=== PATIENT | male | born 1965 | race Caucasian/White ===

== ENCOUNTER 2025-01-27 10:00 | Outpatient (RCR) | payer MEDICARE, MEDICAID, SELFPAY ==
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
[2024-11-04 10:46] VITALS: BP 154/82; PULSE 76; RESP 20; TEMP 36.8; O2SAT 100
[2024-11-06 10:11] VITALS: BP 140/88; PULSE 83; RESP 20; TEMP 36.9; O2SAT 97
--- NOTE | 2024-11-06 10:25 | PC.NURSE ---
No nursing group due to nurse meeting.
[2024-11-11 10:16] VITALS: BP 127/78; PULSE 83; RESP 20; TEMP 36.9; O2SAT 99
[2024-11-13 10:18] VITALS: BP 142/79; PULSE 82; RESP 20; TEMP 37; O2SAT 100
--- NOTE | 2024-11-14 11:57 | WPDSLSPROGRE ---
Progress HPI Progress HPI Visit Attended By patient and staff History Obtained From patient Chief Complaint 2 week admission follow-up HPI this is a 2 week follow-up from admission. Patient is being seen for depression, anxiety, and grief. He enjoys the program and participates well, starting to formulate goals. He is currently not on psychotropic medication, as back in July he was put on Lexapro but never took this because he says that he does not like to take a lot of pills. However, he does use marijuana for mood and pain. Reports early and middle insomnia due to pain and sinus problems. I suggested that he see an ENT but he said that he has seen 1 for the past couple of years and feels that he did not help him. Average Number of Hours of Sleep 5 Sleep Quality sleep throughout the night and difficulty falling asleep Change in PMFSH Releveant to Presenting Illness No Review of Systems Review of Systems Constitutional Reports fatigue and other ( Type 2 diabetes, morbid obesity) Eyes Reports WNL ENT Reports WNL Respiratory Reports WNL Cardiovascular Reports other ( hypertension, cardiac stent) Gastrointestinal Reports WNL Musculoskeletal Reports abnormal gait, Reports diminished strength and Reports other ( chronic pain) Neurologic Reports other ( spinal degenerative disease) Skin Reports WNL ADL's Reports WNL Exam Physical Exam Review of Lab Studies n/a Hygiene good General Behavior/Attitude Toward Examiner cooperative Pain Yes Pain Location generalized Pain Characteristics chronic Psychiatric Exam Level of Consciousness alert Orientation person, place, time and situation Speech normal rate/tone/volume/prosody and coherent Language able to follow instructions or commands Mood depressed Affect full range, appropriate and congruent Thought Processes/Form logical, linear and goal directed Thought Content depressive symptoms Delusions none Homicidal/Assaultive Ideation none Suicidal Ideation none Hallucinations none Attention/Concentration focused Attention/Concentration Testing Methods observation/interview Short Term Memory Impairment none STM Testing Methods clinical interview (assessment/observation) [place] Memory Impairment none LTM Testing Methods recall of historical events Intellectual Functioning roughly average Intellectual Functioning Assessed By current events Insight fair Insight Assessed By ability to recognize & acknowledge mental illness, ability to understand the implications of mental illness, understanding of treatment options and ability to comply with treatment Judgement fair Judgement Assessed By exploring recent decision-making MMSE n/a Patient Assets willing to accept treatment, able to perform ADLs Patient Liabilities morbid obesity, recent of Assessment and Plan Clinical Impression/Diag Clinical Impression/Diagnosis F 33.1. Continue IOP, patient declines medication for now Progress Overview Reason for Continued Services in an Intensive Outpatient Program continued impaired mood and.or depression, patient would decompenste at a lower level of care, not at baseline level of functioning and high risk for relapse Treatment To Be Provided medication management and group/individual/rec therapy Discharge Disposition/Level of Care outpatient therapy Anticipated Discharge 8-12 weeks Certification Statement Certification Statement I believe this patient requires the services of the Intensive Outpatient Program and that there is reasonable expectation that the patient will make timely and significant practical improvement in the presenting acute symptoms as a result of this Intensive Outpatient Program. I do not believe this patient will benefit from a lesser level of care or could be adequately and appropriately treated in a less restrictive environment. My decision is based on the preceding clinical information.
[2024-11-19 11:09] VITALS: BP 132/82; PULSE 84; RESP 20; TEMP 36.8; O2SAT 99
[2024-11-21 10:28] VITALS: BP 154/88; PULSE 82; RESP 20; TEMP 36.3; O2SAT 100
--- NOTE | 2024-11-21 10:43 | PC.NURSE ---
No nursing group due to MD visit.
--- NOTE | 2024-11-25 09:53 | PC.NURSE ---
No nursing group due to nurse meeting.
[2024-11-25 10:14] VITALS: BP 144/80; PULSE 78; RESP 20; TEMP 37; O2SAT 100
[2024-11-27 11:15] VITALS: BP 155/80; PULSE 79; RESP 20; TEMP 36.7; O2SAT 100
[2024-12-02 10:24] VITALS: PULSE 74; RESP 20; TEMP 37.1; O2SAT 100
[2024-12-04 10:38] VITALS: BP 130/77; PULSE 88; RESP 20; TEMP 36.9; O2SAT 97
--- NOTE | 2024-12-05 12:04 | P.PN_ITS ---
Progress HPI Progress HPI Visit Attended By patient and staff History Obtained From patient Chief Complaint Three week follow-up for depression and anxiety HPI this is a routine follow-up. Patient continues to report depressive symptoms, predominantly lack of interest in things, but also depressed and anxious mood, frequent awakening, low energy, increased appetite ( medicates himself with food clothes), low self-esteem. He has been trying to keep from being too isolated, went to a yazdanism dinner recently and had breakfast with a friend. Was prescribed Lexapro 5 mg q.a.m. in July but never took this because he does not like to take pills. He does use marijuana daily, for mood and pain, and has medical marijuana card. Lives with 22-year-old son. Average Number of Hours of Sleep 5 Sleep Quality frequent awakening Change in PMFSH Releveant to Presenting Illness No Review of Systems Review of Systems Constitutional Reports fatigue, generalized weakness and other ( type 2 diabetes, morbid obesity) Eyes Reports WNL ENT Reports WNL Respiratory Reports WNL Cardiovascular Reports other ( hypertension, cardiac stent) Gastrointestinal Reports WNL Musculoskeletal Reports abnormal gait, Reports diminished strength and Reports muscle stiffness Neurologic Reports other ( chronic pain) Skin Reports WNL ADL's Reports WNL Exam Physical Exam Review of Lab Studies n/a Hygiene good General Behavior/Attitude Toward Examiner pleasant and cooperative Pain Yes Pain Location generalized Pain Characteristics chronic and aching Psychiatric Exam Level of Consciousness alert Orientation person, place, time and situation Speech normal rate/tone/volume/prosody and coherent Language able to follow instructions or commands Mood depressed Affect blunted, appropriate and congruent Thought Processes/Form logical, linear and goal directed Delusions none Homicidal/Assaultive Ideation none Suicidal Ideation none Hallucinations none Attention/Concentration focused Attention/Concentration Testing Methods observation/interview Short Term Memory Impairment none STM Testing Methods clinical interview (assessment/observation) Custodial Memory Impairment none LTM Testing Methods recall of biographical information Intellectual Functioning roughly average Intellectual Functioning Assessed By fund of knowledge Insight fair Insight Assessed By ability to recognize & acknowledge mental illness, ability to understand the implications of mental illness, understanding of treatment options and ability to comply with treatment Judgement fair Judgement Assessed By exploring recent decision-making MMSE n/a Patient Assets willing to accept treatment, able to perform ADLs Patient Liabilities morbid obesity, chronic pain, mobility issues Assessment and Plan Clinical Impression/Diag Clinical Impression/Diagnosis F 33.1. Will start Wellbutrin XL 150 mg q.a.m.. RTC in 2 weeks Progress Overview Reason for Continued Services in an Intensive Outpatient Program continued impaired mood and.or depression, patient would decompenste at a lower level of care, not at baseline level of functioning and high risk for relapse Treatment To Be Provided medication management and group/individual/rec therapy Discharge Disposition/Level of Care PCP Anticipated Discharge 8-12 weeks Certification Statement Certification Statement I believe this patient requires the services of the Intensive Outpatient Program and that there is reasonable expectation that the patient will make timely and significant practical improvement in the presenting acute symptoms as a result of this Intensive Outpatient Program. I do not believe this patient will benefit from a lesser level of care or could be adequately and appropriately treated in a less restrictive environment. My decision is based on the preceding clinical information.
[2024-12-09 10:07] VITALS: BP 130/88; PULSE 90; RESP 20; TEMP 36.2; O2SAT 100
[2024-12-11 10:04] VITALS: BP 145/87; PULSE 89; RESP 20; TEMP 37; O2SAT 100
--- NOTE | 2024-12-11 10:31 | PC.NURSE ---
No nursing group due to nurse meeting.
[2024-12-18 09:45] VITALS: BP 139/83; PULSE 85; RESP 20; TEMP 36.6; O2SAT 97
[2024-12-23 09:34] VITALS: BP 148/80; PULSE 76; RESP 20; TEMP 36.4; O2SAT 100
[2024-12-25 09:34] VITALS: BP 145/87; PULSE 84; RESP 20; TEMP 36.6; O2SAT 98
--- NOTE | 2024-12-26 12:16 | P.PN_ITS ---
Progress HPI Progress HPI Visit Attended By patient and staff History Obtained From patient Chief Complaint something clicked HPI patient is being seen for a routine follow-up. He is being treated for depression and anxiety. At our last visit I ordered Wellbutrin but he said that he never started this. In fact, told me that he was so set on not taking medicine that it pissed me off that he let me talk him into it. However, he said at that point something clicked for him. He feels that it helped him start to process his grief better to where he is not just experiencing painful memories of his , but also pleasant memories. Patient enjoys the program and participates appropriately. Average Number of Hours of Sleep 5 Sleep Quality frequent awakening Change in PMFSH Releveant to Presenting Illness Yes Describe Changes in PMFSH Improved insight into grief Review of Systems Review of Systems Constitutional Reports fatigue, generalized weakness and other ( type 2 diabetes, morbid obesity) Eyes Reports WNL ENT Reports WNL Respiratory Reports WNL Cardiovascular Reports other ( hypertension, cardiac stent) Gastrointestinal Reports WNL Musculoskeletal Reports abnormal gait, Reports diminished strength and Reports muscle stiffness Neurologic Reports other ( chronic pain) Skin Reports WNL ADL's Reports WNL Exam Physical Exam Review of Lab Studies n/a Hygiene good General Behavior/Attitude Toward Examiner pleasant and cooperative Pain Yes Pain Location generalized Pain Characteristics chronic and aching Psychiatric Exam Level of Consciousness alert Orientation person, place, time and situation Speech normal rate/tone/volume/prosody and coherent Language able to comprehend questions Mood less depressed Affect full range, appropriate and congruent Thought Processes/Form logical, linear and goal directed Delusions none Homicidal/Assaultive Ideation none Suicidal Ideation none Hallucinations none Attention/Concentration focused Attention/Concentration Testing Methods observation/interview Short Term Memory Impairment none STM Testing Methods clinical interview (assessment/observation) Mcfp Memory Impairment none LTM Testing Methods recall of biographical information Intellectual Functioning roughly average Intellectual Functioning Assessed By fund of knowledge and current events Insight fair and improving Insight Assessed By ability to recognize & acknowledge mental illness, ability to understand the implications of mental illness, understanding of treatment options and ability to comply with treatment Judgement fair and improving Judgement Assessed By exploring recent decision-making MMSE n/a Patient Assets patient is willing to accept treatment, able to perform ADLs Patient Liabilities morbid obesity, chronic pain, mobility issues, 's Assessment and Plan Clinical Impression/Diag Clinical Impression/Diagnosis F 33.1, progressing well. Continue IOP, will discontinue Wellbutrin Progress Overview Reason for Continued Services in an Intensive Outpatient Program continued impaired mood and.or depression, patient would decompenste at a lower level of care, not at baseline level of functioning and high risk for relapse Treatment To Be Provided medication management and group/individual/rec therapy Discharge Disposition/Level of Care PCP Anticipated Discharge 6 weeks Certification Statement Certification Statement I believe this patient requires the services of the Intensive Outpatient Program and that there is reasonable expectation that the patient will make timely and significant practical improvement in the presenting acute symptoms as a result of this Intensive Outpatient Program. I do not believe this patient will benefit from a lesser level of care or could be adequately and appropriately treated in a less restrictive environment. My decision is based on the preceding clinical information.
[2024-12-30 09:38] VITALS: BP 148/84; PULSE 77; RESP 20; TEMP 36.6; O2SAT 99
[2025-01-01 09:22] VITALS: BP 140/72; PULSE 78; RESP 20; TEMP 36.9; O2SAT 100
--- NOTE | 2025-01-06 08:43 | SLSTHERAPY ---
Staff canceled Goldy's group attendance 01/06/2025 due to health insurance change no longer covering services; Goldy informed of option to request change in insurance plan & resume services.
[2025-01-07 10:32] VITALS: BP 128/80; PULSE 83; RESP 20; TEMP 36.6; O2SAT 100
[2025-01-09 10:19] VITALS: BP 124/75; PULSE 86; RESP 20; TEMP 36.9; O2SAT 97
--- NOTE | 2025-01-09 12:56 | PC.NURSE ---
No nursing group due to MD visit.
[2025-01-13 10:19] VITALS: BP 148/80; PULSE 87; RESP 20; TEMP 37; O2SAT 100
--- NOTE | 2025-01-16 09:18 | PC.NURSE ---
No nursing group due to MD visit.
[2025-01-16 10:08] VITALS: BP 110/72; PULSE 93; RESP 20; TEMP 36.4; O2SAT 96
--- NOTE | 2025-01-16 12:18 | WPDSLSPROGRE ---
Progress HPI Progress HPI Visit Attended By patient and staff History Obtained From patient Patient Stated Chief Complaint fine HPI this is a routine follow-up for depression anxiety. At our last visit we discontinued Wellbutrin as he said that he had never started it. Patient enjoys the program participates well. They are working on topics such as reframing thought processes , as well as gratitude. Also working on grief, which he says is the main reason he came to the program. Difficulty sleeping, mainly due to pain, and other medical issues such as sinusitis. Average Number of Hours of Sleep 5 Sleep Quality frequent awakening Change in PMFSH Releveant to Presenting Illness No Review of Systems Review of Systems Constitutional Reports fatigue, generalized weakness and other ( Type 2 diabetes, morbid obesity) Eyes Reports WNL ENT Reports WNL Respiratory Reports WNL Cardiovascular Reports other ( cardiac stent, hypertension) Gastrointestinal Reports WNL Musculoskeletal Reports abnormal gait, Reports diminished strength and Reports muscle stiffness Neurologic Reports other ( chronic pain) Skin Reports WNL ADL's Reports WNL Exam Physical Exam Review of Lab Studies n/a Hygiene good General Behavior/Attitude Toward Examiner pleasant and cooperative Pain Yes Pain Location generalized Pain Characteristics chronic and aching Psychiatric Exam Level of Consciousness alert Orientation person, place, time and situation Speech normal rate/tone/volume/prosody and coherent Language able to comprehend questions Mood fine Affect full range, appropriate and congruent Thought Processes/Form logical, linear and goal directed Thought Content diminished depressive symptoms Delusions none Homicidal/Assaultive Ideation none Suicidal Ideation none Hallucinations none Attention/Concentration focused Attention/Concentration Testing Methods observation/interview Short Term Memory Impairment none STM Testing Methods clinical interview (assessment/observation) Group Home Memory Impairment none LTM Testing Methods recall of biographical information Intellectual Functioning roughly average Intellectual Functioning Assessed By fund of knowledge Insight fair and improving Insight Assessed By ability to recognize & acknowledge mental illness, ability to understand the implications of mental illness, understanding of treatment options and ability to comply with treatment Judgement fair and improving Judgement Assessed By exploring recent decision-making MMSE n/a Patient Assets able to perform ADLs, willing to accept treatment recent of Patient Liabilities morbid obesity, chronic pain, mobility issues, 's Assessment and Plan Clinical Impression/Diag Clinical Impression/Diagnosis F 33.1, progressing well. Continue IOP, no meds Progress Overview Reason for Continued Services in an Intensive Outpatient Program continued impaired mood and.or depression, patient would decompenste at a lower level of care, not at baseline level of functioning and high risk for relapse Treatment To Be Provided medication management and group/individual/rec therapy Anticipated Discharge 4-6 weeks
[2025-01-20 10:10] VITALS: BP 122/72; PULSE 82; RESP 20; TEMP 36.8; O2SAT 97
[2025-01-23 10:15] VITALS: BP 130/82; PULSE 77; RESP 20; TEMP 36.8; O2SAT 99
[2025-01-27 09:57] VITALS: BP 117/77; PULSE 86; RESP 20; TEMP 36.6; O2SAT 98
== END 2025-01-29 23:59 | disposition home or self-care (01) ==
LOC: CHSSENLIFE 10:00
PROVIDERS: PCP Family Medicine; Visit Provider Psychiatry & Neurology Psychiatry
DX: F33.1 Major depressive disorder, recurrent, moderate (principal)
CPT/HCPCS: 90792; 90853; 99213; 99214; G0463

== ENCOUNTER 2025-04-30 10:00 | Outpatient (RCR) | payer MEDICARE, MEDICAID, SELFPAY ==
[2025-01-30 00:01] VITALS: BP 117/77; PULSE 86; RESP 20; TEMP 36.6; O2SAT 98
--- NOTE | 2025-01-30 10:26 | PC.NURSE ---
No nursing group due to MD visit.
[2025-01-30 10:30] VITALS: BP 122/74; PULSE 86; RESP 20; TEMP 37; O2SAT 98
[2025-02-03 09:59] VITALS: BP 110/72; PULSE 90; RESP 20; TEMP 36.8; O2SAT 98
--- NOTE | 2025-02-05 09:40 | PC.NURSE ---
No nursing group due to MD visit.
[2025-02-05 10:17] VITALS: BP 126/72; PULSE 84; RESP 20; TEMP 37.1; O2SAT 100
--- NOTE | 2025-02-05 16:12 | WPDSLSPROGRE ---
Progress HPI Progress HPI Visit Attended By patient and staff History Obtained From patient Patient Stated Chief Complaint Follow-up for depression and anxiety, Better and better HPI this is a routine follow-up for depression and anxiety. Patient enjoys the program participates well. Today they are working on topics such as loneliness. He continues to experience chronic pain and says that Aleve and marijuana helps this. he is on no psychotropic medication from this office. The pain tends to keep him up at night, although he is sleeping a bit better. Average Number of Hours of Sleep 6 Sleep Quality frequent awakening Change in PMFSH Releveant to Presenting Illness No Review of Systems Review of Systems Constitutional Reports fatigue, generalized weakness and other ( Type 2 diabetes, morbid obesity) Eyes Reports WNL ENT Reports WNL Respiratory Reports WNL Cardiovascular Reports other ( cardiac stent, hypertension) Gastrointestinal Reports WNL Musculoskeletal Reports diminished strength and Reports muscle stiffness Neurologic Reports other ( chronic pain) Skin Reports WNL ADL's Reports WNL Exam Physical Exam Review of Lab Studies n/a Hygiene good General Behavior/Attitude Toward Examiner pleasant and cooperative Pain Yes Pain Location generalized Pain Characteristics chronic and aching Psychiatric Exam Level of Consciousness alert Orientation person, place, time and situation Speech normal rate/tone/volume/prosody and coherent Language able to comprehend questions Mood less depressed Affect full range, appropriate and congruent Thought Processes/Form logical, linear and goal directed Thought Content diminished depressive symptoms Delusions none Homicidal/Assaultive Ideation none Suicidal Ideation none Hallucinations none Attention/Concentration focused Attention/Concentration Testing Methods observation/interview Short Term Memory Impairment none STM Testing Methods clinical interview (assessment/observation) [facility] Memory Impairment none LTM Testing Methods recall of biographical information Intellectual Functioning roughly average Intellectual Functioning Assessed By current events Insight fair and improving Insight Assessed By ability to recognize & acknowledge mental illness, ability to understand the implications of mental illness, understanding of treatment options and ability to comply with treatment Judgement fair and improving Judgement Assessed By exploring recent decision-making MMSE n/a Patient Assets patient is willing to accept treatment, able to perform ADLs Patient Liabilities morbid obesity, chronic pain, mobility issues, 's Assessment and Plan Clinical Impression/Diag Clinical Impression/Diagnosis F 33.1, progressing well Progress Overview Reason for Continued Services in an Intensive Outpatient Program continued impaired mood and.or depression, patient would decompenste at a lower level of care, not at baseline level of functioning and high risk for relapse Treatment To Be Provided medication management and group/individual/rec therapy Discharge Disposition/Level of Care outpatient therapy Anticipated Discharge 4-6 weeks
[2025-02-10 09:50] VITALS: BP 142/74; PULSE 84; RESP 20; TEMP 37.1; O2SAT 99
[2025-02-12 10:07] VITALS: BP 123/69; PULSE 90; RESP 18; TEMP 36.9; O2SAT 97
[2025-02-17 10:14] VITALS: BP 128/72; PULSE 88; RESP 18; TEMP 36.9; O2SAT 99
[2025-02-19 09:47] VITALS: BP 122/72; PULSE 88; RESP 20; TEMP 36.4; O2SAT 96
[2025-02-24 09:55] VITALS: BP 141/78; PULSE 80; RESP 18; TEMP 36.1; O2SAT 97
[2025-02-26 10:02] VITALS: BP 118/82; PULSE 82; RESP 20; TEMP 37.1; O2SAT 99
[2025-03-05 09:43] VITALS: BP 142/63; PULSE 84; RESP 20; TEMP 36.9; O2SAT 99
[2025-03-06 09:53] VITALS: BP 122/76; PULSE 80; RESP 18; TEMP 37; O2SAT 99
--- NOTE | 2025-03-06 10:42 | PC.NURSE ---
No nursing group due to MD visit.
--- NOTE | 2025-03-06 10:50 | PC.NURSE ---
No nursing group due to Md visit.
--- NOTE | 2025-03-06 11:37 | P.PN_ITS ---
Progress HPI Progress HPI Visit Attended By patient and staff History Obtained From patient Patient Stated Chief Complaint I enjoy the therapy HPI this is a routine follow-up for depression and anxiety. He enjoys the program participates well. They have been working on loneliness and lack of motivation, both which he says he can relate to. He is on no psychotropic medication this office. Experiencing chronic pain, uses Aleve and marijuana. Does not go to physical therapy, but does see a chiropractor every 2 weeks or so which he says helps with the pain and with his mobility. Pain keeps him up at night, but he is sleeping a bit better. Blood sugars have been running between 160 and 170. Average Number of Hours of Sleep 7 Sleep Quality frequent awakening Change in PMFSH Releveant to Presenting Illness No Review of Systems Review of Systems Constitutional Reports fatigue, generalized weakness and other ( type 2 diabetes, morbid obesity) Eyes Reports WNL ENT Reports WNL Respiratory Reports WNL Cardiovascular Reports other ( coronary artery disease, cardiac stent, hypertension) Gastrointestinal Reports WNL Musculoskeletal Reports diminished strength and Reports muscle stiffness Neurologic Reports other ( chronic pain) Skin Reports WNL ADL's Reports WNL Exam Physical Exam Review of Lab Studies n/a Hygiene good General Behavior/Attitude Toward Examiner pleasant and cooperative Pain Yes Pain Location back Pain Characteristics chronic and aching Psychiatric Exam Level of Consciousness alert Orientation person, place, time and situation Speech normal rate/tone/volume/prosody and coherent Language able to follow instructions or commands Mood less depressed Affect full range, appropriate and congruent Thought Processes/Form logical, linear and goal directed Thought Content diminished depressive symptoms Delusions none Homicidal/Assaultive Ideation none Suicidal Ideation none Hallucinations none Attention/Concentration focused Attention/Concentration Testing Methods observation/interview Short Term Memory Impairment none STM Testing Methods clinical interview (assessment/observation) [facility] Memory Impairment none LTM Testing Methods recall of biographical information Intellectual Functioning roughly average Intellectual Functioning Assessed By current events Insight fair and improving Insight Assessed By ability to recognize & acknowledge mental illness, ability to understand the implications of mental illness, understanding of treatment options and ability to comply with treatment Judgement fair and improving Judgement Assessed By exploring recent decision-making MMSE n/a Patient Assets willing to accept treatment, able to perform ADLs Patient Liabilities morbid obesity, chronic pain, mobility issues, 's Assessment and Plan Clinical Impression/Diag0 Clinical Impression/Diagnosis F 33.1, progressing well. Continue IOP, no meds from this office Progress Overview Reason for Continued Services in an Intensive Outpatient Program continued impaired mood and.or depression, patient would decompenste at a lower level of care, not at baseline level of functioning and high risk for relapse Treatment To Be Provided medication management and group/individual/rec therapy Discharge Disposition/Level of Care PCP Anticipated Discharge 4-6 weeks
[2025-03-10 09:48] VITALS: BP 120/63; PULSE 86; RESP 20; TEMP 36.6; O2SAT 97
[2025-03-12 10:10] VITALS: BP 117/76; PULSE 90; RESP 20; TEMP 36.7; O2SAT 98
--- NOTE | 2025-03-12 10:27 | PC.NURSE ---
No nursing group due to MD visit.
[2025-03-17 09:58] VITALS: BP 117/65; PULSE 88; RESP 20; TEMP 36.4; O2SAT 96
[2025-03-19 10:08] VITALS: BP 119/72; PULSE 81; RESP 18; TEMP 36.8; O2SAT 98
[2025-03-24 10:00] VITALS: BP 102/66; PULSE 90; RESP 18; TEMP 36.7; O2SAT 97
[2025-03-26 09:48] VITALS: BP 112/82; PULSE 82; RESP 18; TEMP 36.8; O2SAT 96
--- NOTE | 2025-03-27 11:50 | P.PN_ITS ---
Progress HPI Progress HPI Visit Attended By patient and staff History Obtained From patient Patient Stated Chief Complaint ok HPI This is a routine follow-up. Patient is being seen for depression and anxiety. He continues to enjoy the program and participates well. Attends 2 days a week, working on topics such as negative thinking. Continues to deal with chronic pain for which he uses Aleve and marijuana. Does not go to physical therapy but does see a chiropractor every 2 weeks or so which he says helps with pain and mobility. The pain keeps him up at night at times. Blood sugars have been in the 130s recently. No medication for this office. looking forward to celebrating his birthday this weekend with family Average Number of Hours of Sleep 7 Sleep Quality frequent awakening Change in PMFSH Releveant to Presenting Illness No Review of Systems Review of Systems Constitutional Reports fatigue, generalized weakness and other ( Type 2 diabetes, morbid obesity) Eyes Reports WNL ENT Reports WNL Respiratory Reports WNL Cardiovascular Reports other ( coronary artery disease, cardiac stent, hypertension) Gastrointestinal Reports WNL Musculoskeletal Reports abnormal gait, Reports diminished strength, Reports muscle stiffness and Reports other Neurologic Reports other ( chronic pain) Skin Reports WNL ADL's Reports WNL and Reports independent Exam Physical Exam Review of Lab Studies n/a Hygiene good General Behavior/Attitude Toward Examiner pleasant and cooperative Pain Yes Pain Location generalized Pain Characteristics chronic and throbbing Psychiatric Exam Level of Consciousness alert Orientation person, place, time and situation Speech normal rate/tone/volume/prosody and coherent Language able to comprehend questions Mood okay Affect full range, appropriate and congruent Thought Processes/Form logical, linear and goal directed Thought Content diminished depressive and anxiety symptoms Delusions none Homicidal/Assaultive Ideation none Suicidal Ideation none Hallucinations none Attention/Concentration focused Attention/Concentration Testing Methods observation/interview Short Term Memory Impairment none STM Testing Methods clinical interview (assessment/observation) [facility] Memory Impairment none LTM Testing Methods recall of biographical information Intellectual Functioning roughly average Intellectual Functioning Assessed By fund of knowledge Insight fair and improving Insight Assessed By ability to recognize & acknowledge mental illness, ability to understand the implications of mental illness, understanding of treatment options and ability to comply with treatment Judgement fair Judgement Assessed By exploring recent decision-making MMSE n/a Patient Assets willing to accept treatment, able to perform ADLs Patient Liabilities morbid obesity, chronic pain, mobility issues, 's Assessment and Plan Clinical Impression/Diag Clinical Impression/Diagnosis F 33.1, progressing well. Continue IOP, no meds Progress Overview Reason for Continued Services in an Intensive Outpatient Program continued impaired mood and.or depression, patient would decompenste at a lower level of care, not at baseline level of functioning and high risk for relapse Treatment To Be Provided medication management and group/individual/rec therapy Discharge Disposition/Level of Care PCP Anticipated Discharge 4-6 weeks
[2025-03-31 10:20] VITALS: BP 102/70; PULSE 88; RESP 18; TEMP 36.3; O2SAT 98
[2025-04-02 10:36] VITALS: BP 125/70; PULSE 88; RESP 18; TEMP 36.8; O2SAT 97
[2025-04-07 10:24] VITALS: BP 125/65; PULSE 86; RESP 20; TEMP 36.8; O2SAT 98
[2025-04-09 09:25] VITALS: BP 108/75; PULSE 86; RESP 20; TEMP 36.6; O2SAT 96
[2025-04-10 09:59] VITALS: BP 119/73; PULSE 89; RESP 18; TEMP 37; O2SAT 98
--- NOTE | 2025-04-10 10:33 | PC.NURSE ---
No nursing group due to MD visit.
[2025-04-14 10:22] VITALS: BP 103/72; PULSE 84; RESP 20; TEMP 36.8; O2SAT 97
[2025-04-17 10:14] VITALS: BP 125/80; PULSE 94; RESP 18; TEMP 37.1; O2SAT 96
--- NOTE | 2025-04-17 10:23 | PC.NURSE ---
No nursing group due to MD visit.
--- NOTE | 2025-04-17 11:52 | WPDSLSPROGRE ---
Progress HPI Progress HPI Visit Attended By patient and staff History Obtained From patient Patient Stated Chief Complaint just checking in HPI This is a routine visit for depression and anxiety. Patient is on no medication this office. Continues to enjoy the program participates well. Attends 2 days a week. His mood is usually better on the days he comes to class. Today they are working on boredom, and loneliness, both of which he struggles with. Yesterday he was in a very low mood, probably due to the fact that he disposed of some of his mother's clothes. Continues to deal with chronic pain for which he uses Aleve and marijuana, and also sees his chiropractor which does help with mobility. The pain does keep him up at times. Blood sugars have been anywhere from the 160s to 200s. He struggles at times to maintain a proper diet. Average Number of Hours of Sleep 7 Sleep Quality frequent awakening Change in PMFSH Releveant to Presenting Illness No Review of Systems Review of Systems Constitutional Reports fatigue, generalized weakness and other ( Type 2 diabetes, morbid obesity) Eyes Reports WNL ENT Reports WNL Respiratory Reports WNL Cardiovascular Reports other ( coronary artery disease, cardiac stent, hypertension) Gastrointestinal Reports WNL Musculoskeletal Reports abnormal gait, Reports diminished strength and Reports muscle stiffness Neurologic Reports other ( chronic pain) Skin Reports WNL ADL's Reports WNL and Reports independent Exam Physical Exam Review of Lab Studies n/a Hygiene good General Behavior/Attitude Toward Examiner pleasant and cooperative Pain Yes Pain Location generalized Pain Characteristics chronic and aching Psychiatric Exam Level of Consciousness alert Orientation person, place, time and situation Speech normal rate/tone/volume/prosody and coherent Language able to comprehend questions Mood mildly depressed Affect full range, appropriate and congruent Thought Processes/Form logical, linear and goal directed Thought Content mild depressive symptoms Delusions none Homicidal/Assaultive Ideation none Suicidal Ideation none Hallucinations none Attention/Concentration focused Attention/Concentration Testing Methods observation/interview Short Term Memory Impairment none STM Testing Methods clinical interview (assessment/observation) [facility] Memory Impairment none LTM Testing Methods recall of biographical information Intellectual Functioning roughly average Intellectual Functioning Assessed By fund of knowledge Insight fair Insight Assessed By ability to recognize & acknowledge mental illness, ability to understand the implications of mental illness, understanding of treatment options and ability to comply with treatment Judgement fair Judgement Assessed By exploring recent decision-making MMSE n/a Patient Assets willing to accept treatment, able to perform ADLs Patient Liabilities morbid obesity, chronic pain, mobility issues, 's Assessment and Plan Clinical Impression/Diag Clinical Impression/Diagnosis F 33.1, progressing well. Continue IOP, no meds Progress Overview Reason for Continued Services in an Intensive Outpatient Program continued impaired mood and.or depression, patient would decompenste at a lower level of care, not at baseline level of functioning and high risk for relapse Treatment To Be Provided medication management and group/individual/rec therapy Discharge Disposition/Level of Care PCP Anticipated Discharge 4-6 weeks
[2025-04-21 10:12] VITALS: BP 100/63; PULSE 88; RESP 18; TEMP 36.8; O2SAT 97
[2025-04-23 10:22] VITALS: BP 110/60; PULSE 88; RESP 20; TEMP 37.1; O2SAT 97
[2025-04-30 09:07] VITALS: BP 110/70; PULSE 85; RESP 18; TEMP 36.8; O2SAT 97
== END 2025-04-30 23:59 | disposition home or self-care (01) ==
LOC: CHSSENLIFE 10:00
PROVIDERS: PCP Family Medicine; Visit Provider Psychiatry & Neurology Psychiatry
DX: F33.1 Major depressive disorder, recurrent, moderate (principal)
CPT/HCPCS: 90837; 90853; 99213; G0463

== ENCOUNTER 2025-07-30 10:00 | Outpatient (RCR) | payer MEDICARE, MEDICAID, SELFPAY ==
[2025-05-01 00:02] VITALS: BP 110/70; PULSE 85; RESP 18; TEMP 36.8; O2SAT 97
--- NOTE | 2025-05-01 10:05 | PC.NURSE ---
No nursing group due to MD visit.
[2025-05-01 10:34] VITALS: BP 116/70; PULSE 84; RESP 20; TEMP 36.8; O2SAT 98
[2025-05-07 09:40] VITALS: BP 114/88; PULSE 80; RESP 20; TEMP 37; O2SAT 94
--- NOTE | 2025-05-08 09:29 | PC.NURSE ---
No nursing group due to MD visit.
[2025-05-08 10:27] VITALS: BP 122/58; PULSE 82; RESP 20; TEMP 36.9; O2SAT 97
--- NOTE | 2025-05-08 11:52 | WPDSLSPROGRE ---
Progress HPI Progress HPI Visit Attended By patient and staff History Obtained From patient Patient Stated Chief Complaint sessions have helped quite a lot HPI This is a routine visit for depression and anxiety. Patient is on no medication from this office. Continues to enjoy the program and participates well. At our last visit he was in a fairly low mood, probably due to the fact that he disposed to some of his 's clothes. Doing a bit better today, although he recently went through the 9 month anniversary of her . Feels the program is helping significantly. Attends 2 days a week. Working on grief, coping skills, among other topics. Continues to deal with chronic pain for which he uses Aleve and marijuana, and also sees chiropractor which helps with mobility. Apparently he just saw him last week. Blood sugars have been under 160 and he is trying to lose weight. Average Number of Hours of Sleep 7 Sleep Quality frequent awakening Change in PMFSH Releveant to Presenting Illness Yes Describe Changes in PMFSH Recent anniversary of 's Review of Systems Review of Systems Constitutional Reports fatigue, generalized weakness and other ( type 2 diabetes, morbid obesity) Eyes Reports WNL ENT Reports WNL Respiratory Reports WNL Cardiovascular Reports other ( coronary artery disease, cardiac stent, hypertension) Gastrointestinal Reports WNL Musculoskeletal Reports abnormal gait and Reports muscle stiffness Neurologic Reports other ( chronic pain) Skin Reports WNL ADL's Reports WNL Exam Physical Exam Review of Lab Studies n/a Hygiene good General Behavior/Attitude Toward Examiner pleasant and cooperative Pain Yes Pain Location generalized Pain Characteristics chronic Psychiatric Exam Level of Consciousness alert Orientation person, place, time and situation Speech normal rate/tone/volume/prosody and coherent Language able to comprehend questions Mood depressed Affect full range, appropriate and congruent Thought Processes/Form logical, linear and goal directed Thought Content depressive symptoms Delusions none Homicidal/Assaultive Ideation none Suicidal Ideation none Hallucinations none Attention/Concentration focused Attention/Concentration Testing Methods observation/interview Short Term Memory Impairment none STM Testing Methods clinical interview (assessment/observation) [employer] Memory Impairment none LTM Testing Methods recall of biographical information Intellectual Functioning roughly average Intellectual Functioning Assessed By fund of knowledge Insight fair and improving Insight Assessed By ability to recognize & acknowledge mental illness, ability to understand the implications of mental illness, understanding of treatment options and ability to comply with treatment Judgement fair and improving Judgement Assessed By exploring recent decision-making MMSE n/a Patient Assets able to perform ADLs, willing to accept treatment Patient Liabilities 's , chronic pain, mobility issues, morbid obesity Assessment and Plan Clinical Impression/Diag Clinical Impression/Diagnosis F 33.1, some improvement. Continue IOP, monitor meds, processing grief, working on coping skills Progress Overview Reason for Continued Services in an Intensive Outpatient Program continued impaired mood and.or depression, patient would decompenste at a lower level of care, not at baseline level of functioning and high risk for relapse Treatment To Be Provided medication management and group/individual/rec therapy Discharge Disposition/Level of Care PCP Anticipated Discharge 4-6 weeks
[2025-05-14 10:07] VITALS: BP 128/74; PULSE 94; RESP 20; TEMP 37.1; O2SAT 96
--- NOTE | 2025-05-15 09:35 | PC.NURSE ---
No nursing group due to MD visit.
[2025-05-15 10:33] VITALS: BP 107/64; PULSE 88; RESP 20; TEMP 37; O2SAT 96
[2025-05-21 09:53] VITALS: BP 114/88; PULSE 84; RESP 20; TEMP 36.9; O2SAT 97
[2025-05-22 10:07] VITALS: BP 105/70; PULSE 94; RESP 20; TEMP 36.9; O2SAT 98
--- NOTE | 2025-05-22 10:34 | PC.NURSE ---
No nursing group due to MD visit.
[2025-05-28 10:32] VITALS: BP 110/60; PULSE 90; RESP 20; TEMP 37; O2SAT 97
--- NOTE | 2025-05-28 14:24 | PC.NURSE ---
No nursing group due to nurse meeting.
--- NOTE | 2025-05-29 09:41 | PC.NURSE ---
No nursing group due to MD visit.
[2025-05-29 10:17] VITALS: BP 118/70; PULSE 92; RESP 20; TEMP 36.9; O2SAT 96
[2025-06-04 10:13] VITALS: BP 112/86; PULSE 88; RESP 20; TEMP 36.9; O2SAT 97
--- NOTE | 2025-06-05 09:16 | PC.NURSE ---
No nursing group due to MD visit.
[2025-06-05 10:28] VITALS: BP 119/71; PULSE 82; RESP 20; TEMP 36.9; O2SAT 97
--- NOTE | 2025-06-05 11:32 | WPDSLSPROGRE ---
Progress HPI Progress HPI Visit Attended By patient and staff History Obtained From patient Patient Stated Chief Complaint they're going HPI This is a routine follow-up for depression and anxiety. Patient is on no medication from this office. Continues to enjoy the program and participates well. Has gradually continued to get rid of some of his 's things at a pace that is comfortable for him. Attends 2 days a week, and feels the program is helping significantly. He says I do not want to shoot myself like I did when I 1st got here. In therapy they have been working on coping skills, triggers, among other topics. Blood sugars have been under 160 and is trying to lose weight, but is afraid to check his weight. Continues to deal with chronic pain for which he uses Aleve and marijuana, and also sees the chiropractor every 2 weeks to help with his mobility. Average Number of Hours of Sleep 7 Sleep Quality frequent awakening Change in PMFSH Releveant to Presenting Illness No Review of Systems Review of Systems Constitutional Reports fatigue, generalized weakness and other ( Type 2 diabetes, morbid obesity) Eyes Reports WNL ENT Reports WNL Respiratory Reports WNL Cardiovascular Reports other ( coronary artery disease, cardiac stent, hypertension) Gastrointestinal Reports WNL Musculoskeletal Reports abnormal gait and Reports muscle stiffness Neurologic Reports other ( chronic pain) Skin Reports WNL ADL's Reports WNL Exam Physical Exam Review of Lab Studies n/a Hygiene good General Behavior/Attitude Toward Examiner pleasant and cooperative Pain Yes Pain Location generalized Pain Characteristics chronic Psychiatric Exam Level of Consciousness alert Orientation person, place, time and situation Speech normal rate/tone/volume/prosody and coherent Language able to follow instructions or commands Mood less depressed Affect full range, appropriate and congruent Thought Processes/Form logical, linear and goal directed Thought Content diminished depressive symptoms Delusions none Homicidal/Assaultive Ideation none Suicidal Ideation none Hallucinations none Attention/Concentration focused Attention/Concentration Testing Methods observation/interview Short Term Memory Impairment none STM Testing Methods clinical interview (assessment/observation) Office Support Assistant Memory Impairment none LTM Testing Methods recall of biographical information Intellectual Functioning roughly average Intellectual Functioning Assessed By fund of knowledge and current events Insight fair and improving Insight Assessed By ability to recognize & acknowledge mental illness, ability to understand the implications of mental illness, understanding of treatment options and ability to comply with treatment Judgement fair and improving Judgement Assessed By exploring recent decision-making MMSE n/a Patient Assets able to perform ADLs, willing to accept treatment Patient Liabilities 's , grief, chronic pain, mobility issues, morbid obesity Assessment and Plan Clinical Impression/Diag Clinical Impression/Diagnosis F 33.1, improving, continue IOP, work on grief, coping skills Progress Overview Reason for Continued Services in an Intensive Outpatient Program continued impaired mood and.or depression, patient would decompenste at a lower level of care, not at baseline level of functioning and high risk for relapse Treatment To Be Provided medication management and group/individual/rec therapy Discharge Disposition/Level of Care PCP Anticipated Discharge 4-6 weeks
[2025-06-11 10:17] VITALS: BP 124/68; PULSE 80; RESP 18; TEMP 36.8; O2SAT 98
--- NOTE | 2025-06-12 09:15 | PC.NURSE ---
No nursing group due to MD visit.
[2025-06-12 10:12] VITALS: BP 112/70; PULSE 84; RESP 20; TEMP 36.8; O2SAT 96
[2025-06-16 10:26] VITALS: BP 110/66; PULSE 83; RESP 18; TEMP 36.9; O2SAT 97
[2025-06-18 10:08] VITALS: BP 110/82; PULSE 82; RESP 20; TEMP 36.8; O2SAT 98
[2025-06-23 10:13] VITALS: BP 125/72; PULSE 77; RESP 20; TEMP 36.8; O2SAT 96
[2025-06-25 10:04] VITALS: BP 137/79; PULSE 80; RESP 20; TEMP 36.5; O2SAT 97
--- NOTE | 2025-06-26 12:11 | P.PN_ITS ---
Progress HPI Progress HPI Visit Attended By patient and staff History Obtained From patient Patient Stated Chief Complaint I don't know HPI Did some contract work with cousin. Gradually getting some of 's things. Routine visit. Seeing patient for depression. [place]. In therapy, working on anxiety, coping skills. Watches his blood sugar generally. continues to deal with chronic pain, uses Aleve and MJ, helps, sees chiropractor every 1-2 weeks. No meds from this office. Attends 2 days a week. Average Number of Hours of Sleep 6 Sleep Quality frequent awakening Change in PMFSH Releveant to Presenting Illness No Review of Systems Review of Systems Constitutional Reports fatigue and generalized weakness Eyes Reports WNL ENT Reports WNL Respiratory Reports WNL Cardiovascular Reports other (Coronary artery disease, cardiac stent, hypertension) Gastrointestinal Reports WNL Musculoskeletal Reports abnormal gait and Reports muscle stiffness Neurologic Reports other ( chronic pain) Skin Reports WNL ADL's Reports WNL and Reports independent Exam Physical Exam Review of Lab Studies n/a Hygiene good General Behavior/Attitude Toward Examiner pleasant and cooperative Pain Yes Pain Location generalized Pain Characteristics chronic Psychiatric Exam Level of Consciousness alert Orientation person, place, time and situation Speech normal rate/tone/volume/prosody and coherent Language able to comprehend questions Mood less depressed Affect full range, appropriate and congruent Thought Processes/Form logical, linear and goal directed Thought Content diminished depressive symptoms Delusions none Homicidal/Assaultive Ideation none Suicidal Ideation none Hallucinations none Attention/Concentration focused Attention/Concentration Testing Methods observation/interview Short Term Memory Impairment none STM Testing Methods clinical interview (assessment/observation) [facility] Memory Impairment none LTM Testing Methods recall of biographical information Intellectual Functioning roughly average Intellectual Functioning Assessed By abstract reasoning and fund of knowledge Insight fair and improving Insight Assessed By ability to recognize & acknowledge mental illness, ability to understand the implications of mental illness, understanding of treatment options and ability to comply with treatment Judgement fair and improving Judgement Assessed By exploring recent decision-making MMSE n/a Patient Assets able to perform ADLs, willing to accept treatment Patient Liabilities 's , grief, chronic pain, mobility issues, morbid obesity Assessment and Plan Clinical Impression/Diag Clinical Impression/Diagnosis F 33.1, improving, continue IOP, work on grief, coping skills Progress Overview Reason for Continued Services in an Outpatient Program continued impaired mood and.or depression, patient would decompenste at a lower level of care, not at baseline level of functioning and high risk for relapse Treatment To Be Provided medication management and group/individual/rec therapy Discharge Disposition/Level of Care PCP Anticipated Discharge 4-6 weeks
[2025-06-30 10:01] VITALS: BP 130/67; PULSE 87; RESP 20; TEMP 36.8; O2SAT 97
[2025-07-02 10:08] VITALS: BP 135/77; PULSE 87; RESP 20; TEMP 37.1; O2SAT 98
[2025-07-07 10:01] VITALS: BP 126/86; PULSE 80; RESP 20; TEMP 36.7; O2SAT 98
[2025-07-09 10:30] VITALS: BP 103/68; PULSE 92; RESP 20; TEMP 36.9; O2SAT 97
[2025-07-16 13:50] VITALS: BP 115/78; PULSE 83; RESP 20; TEMP 37; O2SAT 99
--- NOTE | 2025-07-16 14:27 | PC.NURSE ---
No nursing group due to nurse meeting.
--- NOTE | 2025-07-17 09:19 | PC.NURSE ---
No nursing group due to MD visit.
[2025-07-17 10:09] VITALS: BP 117/88; PULSE 90; RESP 20; TEMP 36.8; O2SAT 100
--- NOTE | 2025-07-17 11:35 | WPDSLSPROGRE ---
Progress HPI Progress HPI Visit Attended By patient and staff History Obtained From patient Patient Stated Chief Complaint I have my shit days HPI routine follow-up for depression. Overall patient is doing fairly well, but does admit that he has some days where he is more depressed. As it turns out, this month is the anniversary of his 's . he does enjoy the program and participates appropriately. Working on setting goals and loneliness versus boredom. Blood pressure has been okay, blood glucose fluctuates somewhat. Still helping his cousin a few hours a week. No medication this office. [place] his . Still living with chronic pain, uses Aleve and marijuana which does help, as does seeing his chiropractor weekly at this point. Attends 2 days a week. Average Number of Hours of Sleep 6 Sleep Quality frequent awakening Change in PMFSH Releveant to Presenting Illness No Review of Systems Review of Systems Constitutional Reports fatigue and generalized weakness Eyes Reports WNL ENT Reports WNL Respiratory Reports WNL Cardiovascular Reports other ( Hypertension, coronary artery disease, cardiac stent) Gastrointestinal Reports WNL Musculoskeletal Reports abnormal gait, Reports muscle stiffness and Reports other ( chronic pain) Neurologic Reports WNL Skin Reports WNL ADL's Reports WNL and Reports independent Exam Physical Exam Review of Lab Studies n/a Hygiene good General Behavior/Attitude Toward Examiner pleasant and cooperative Pain Yes Pain Location generalized Pain Characteristics chronic Psychiatric Exam Level of Consciousness alert Orientation person, place, time and situation Speech normal rate/tone/volume/prosody and coherent Language able to comprehend questions Mood up and down Affect full range, appropriate and congruent Thought Processes/Form logical, linear and goal directed Thought Content depressive symptoms Delusions none Homicidal/Assaultive Ideation none Suicidal Ideation none Hallucinations none Attention/Concentration focused Attention/Concentration Testing Methods observation/interview Short Term Memory Impairment none STM Testing Methods clinical interview (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/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 Memory Impairment none LTM Testing Methods recall of biographical information Intellectual Functioning roughly average Intellectual Functioning Assessed By fund of knowledge and current events Insight fair and improving Insight Assessed By ability to recognize & acknowledge mental illness, ability to understand the implications of mental illness, understanding of treatment options and ability to comply with treatment Judgement fair and improving Judgement Assessed By exploring recent decision-making MMSE n/a Patient Assets able to perform ADLs, willing to accept treatment Patient Liabilities 's , grief, chronic pain, mobility issues, morbid obesity Assessment and Plan Clinical Impression/Diag Clinical Impression/Diagnosis F 33.1, improving, continue IOP, work on grief, coping skills Progress Overview Reason for Continued Services in an Outpatient Program continued impaired mood and.or depression, patient would decompenste at a lower level of care, not at baseline level of functioning and high risk for relapse Treatment To Be Provided medication management and group/individual/rec therapy Discharge Disposition/Level of Care PCP Anticipated Discharge 4-6 weeks
--- NOTE | 2025-07-21 10:05 | PC.NURSE ---
No nursing group due to nurse meeting.
[2025-07-21 10:22] VITALS: BP 121/75; PULSE 88; RESP 20; TEMP 36.9; O2SAT 96
[2025-07-23 10:16] VITALS: BP 140/72; PULSE 88; RESP 20; TEMP 37.1; O2SAT 99
[2025-07-28 09:58] VITALS: BP 132/82; PULSE 84; RESP 20; TEMP 36.9; O2SAT 99
[2025-07-30 10:15] VITALS: BP 134/72; PULSE 78; RESP 20; TEMP 36.9; O2SAT 97
== END 2025-07-30 23:59 | disposition home or self-care (01) ==
LOC: CHSSENLIFE 10:00
PROVIDERS: PCP Family Medicine; Visit Provider Psychiatry & Neurology Psychiatry
DX: F33.1 Major depressive disorder, recurrent, moderate (principal)
CPT/HCPCS: 90853; 99213; G0463

== ENCOUNTER 2025-08-24 18:36 | Emergency (ER) | payer MEDICARE, MEDICAID, SELFPAY ==
[2025-08-24] VITALS (7 sets, daily range): BP systolic 134–166; BP diastolic 69–81; PULSE 88–103; RESP 16–20; TEMP 35.8–36.6; O2SAT 93–99
--- NOTE | ~2025-08-24 | CT_ITS ---
EXAMINATION: CT brain wo fco, 08/24/2025 19:05 SOIL CONSERVATION TECHNICIAN HISTORY: weakness X 3 DAYS COMPARISON: No comparisons available. Technique: Axial images obtained of the brain without contrast. One or more of the following dose reduction techniques were used: automated exposure control, adjustment of the mA and/or kV according to patient size, use of iterative reconstruction technique. Findings: No acute infarct or parenchymal hemorrhage. No abnormal mass or mass effect. No midline shift. No extra-axial fluid collections. No hydrocephalus. Mastoid air cells unremarkable. Sinuses and orbits unremarkable. No acute fracture. No significant facial or scalp soft tissue swelling evident. No radiopaque foreign body is seen. Impression: 1.No acute intracranial abnormality. Reviewed, dictated and finalized at location P. CONSERVATION TECHNICIAN Impression: 1.No acute intracranial abnormality.
--- NOTE | ~2025-08-24 | XR_ITS ---
EXAMINATION: XR chest 2V, 08/24/2025 19:00 ENTERPRISE MOBILITY ARCHITECT HISTORY: weakness X 3 DAYS. COMPARISON: No comparisons available. Technique: 2 views obtained. Findings: The lungs are clear, no effusion. No pneumothorax. Heart is normal size. Mediastinal and hilar contours are within normal limits. Bony thorax no acute abnormality. Impression: No acute cardiopulmonary abnormality. Reviewed, dictated and finalized at location P. RPRISE MOBILITY ARCHITECT Impression: No acute cardiopulmonary abnormality.
--- NOTE | 2025-08-24 18:42 | ED.WEAKNESS ---
HPI - Weakness General Chief complaint: Weakness Stated complaint: weakness Time Seen by Provider: 08/24/25 18:41 Source: patient Mode of arrival: ambulatory Limitations: no limitations History of Present Illness HPI Narrative: Patient is a 60-year-old male with generalized weakness for the past 4 days. Patient has on resolving weakness generalized and fatigue. Normally he an active person. He had some chest pain the other day but it is resolved at this time. He has 1 cardiac stent from 2017. No nausea vomiting or diarrhea. No fever chills. Slight dizziness associated symptom. No headache or neck pain. No altered mental status changes. No urinary complaints. No bowel complaints. Significantly he has myalgia. Chronically he has back pain. MD Complaint: generalized weakness and lack of energy Onset (ago): day(s) (4) Duration: constant Location: generalized Migration: none Severity: moderate Severity scale (1-10): 5 Quality: other (No pain) Relieving factors: none Exacerbating factors: none Context: other (Patient having continued and on resolving generalized weakness over the past 4 days) Associated symptoms: chest pain and myalgias Related Data Home Medications ?Medication ?Instructions ?Recorded ?Confirmed ?Last Taken ?Type albuterol sulfate 90 mcg/actuation 1 puff inhalation Q4H PRN 03/26/25 03/26/25 Unknown History aerosol inhaler (Ventolin HFA) shortness of breath or wheezing aspirin 81 mg tablet 81 mg PO DAILY 03/26/25 03/26/25 03/26/25 History atorvastatin 40 mg tablet (Lipitor) 40 mg PO HS 03/26/25 03/26/25 03/25/25 History clopidogrel 75 mg tablet 75 mg PO DAILY 03/26/25 03/26/25 03/26/25 History dulaglutide 3 mg/0.5 mL 3 mg subcut WEEKLY 03/26/25 03/26/25 Unknown History subcutaneous pen injector (Trulicity) empagliflozin 25 mg tablet 25 mg PO DAILY 03/26/25 03/26/25 03/26/25 History (Jardiance) fluconazole 150 mg tablet 150 mg PO DAILY PRN Skin condition 03/26/25 03/26/25 Unknown History hydrochlorothiazide 25 mg tablet 25 mg PO DAILY 03/26/25 03/26/25 03/26/25 History metformin 1,000 mg tablet 1,000 mg PO BID 03/26/25 03/26/25 03/26/25 History metoprolol tartrate 25 mg tablet 25 mg PO BID 03/26/25 03/26/25 03/26/25 History pseudoephedrine HCl PO 03/26/25 03/25/25 History Allergies Allergy/AdvReac Type Severity Reaction Status Date / Time gabapentin Allergy Intermediate unknown Verified 08/24/25 18:40 theophylline Allergy Unknown unkmown Verified 08/24/25 18:40 Review of Systems Review of Systems: All systems reviewed & are unremarkable except as noted in HPI and below Constitutional: Constitutional: Reports no additional constitutional complaints Eyes: Eyes: Reports no additional eye complaints ENT: Reports system reviewed and no additional complaints, except as documented Cardiovascular: Cardiovascular: Reports no additional cardiovascular complaints Respiratory: Respiratory: Reports no additional respiratory complaints Gastrointestinal: Gastrointestinal: Reports no additional gastrointestinal complaints Genitourinary: Genitourinary: Reports no additional male genitourinary complaints Musculoskeletal: Musculoskeletal: Reports no additional musculoskeletal complaints Integumentary/Breasts: Skin/Breast: Reports system reviewed and no additional complaints, except as docu Neurologic: Reports system reviewed and no additional complaints, except as documented Psychiatric: Psychiatric: Reports no additional psychiatric complaints Endocrine: Endocrine: Reports no additional endocrine complaints Hematologic/Lymphatic: Hematologic/Lymphatic: Reports no additional hematologic/lymphatic complaints Allergic/Immunologic: Allergic/Immunologic: Reports no additional allergic/immunologic complaints Exam Const: General: no acute distress Nutritional Appearance: well nourished Orientation/consciousness: patient oriented x3 Limitations: no limitations HENMT: Head: normal to inspection Ears: external ears normal Face/Nose/Sinus: Normal external nose present Eyes: Conjunctivae: conjunctivae normal Pupils: Equal, round and reactive pupils present EOM: EOMs intact bilaterally Neck: Neck: normal visual inspection Chest: Chest palpation & inspection: normal inspection of the chest Resp: Effort & Inspection: normal respiratory effort and not labored Auscultation: clear to auscultation bilaterally and no crackles Cardio: Rate: regular rate Rhythm: regular rhythm Heart sounds: no murmurs GI: Inspection: non-distended GI Palp: Yes Soft to palpation and No Tenderness to palpation present (GI) Auscultation: normal bowel sounds : General: Yes bladder normal to palpation Back/Spine/Pelvis: Back: no CVA tenderness Skin: General skin exam: normal color Rashes: no rashes Wounds: no wounds Neuro: General: patient oriented x3, moves all extremities and no meningeal signs Cranial nerves: Yes Nystagmus not present Speech: normal speech Gait exam (Neuro): Normal gait present Extrem: General: normal to inspection, no clubbing, cyanosis or edema and no pedal edema Psych: Mental Status: mental status grossly normal Affect: normal affect Attitude: cooperative Course Vital Signs Vital signs: Vital Signs Temperature 35.8 C L 08/24/25 18:37 Pulse Rate 103 H 08/24/25 18:37 Respiratory Rate 18 08/24/25 18:37 Blood Pressure 144/79 H 08/24/25 18:37 Pulse Oximetry 99 08/24/25 18:37 Oxygen Delivery Room Air 08/24/25 18:37 Temperature 36.6 C 08/24/25 20:54 Pulse Rate 92 08/24/25 20:54 Respiratory Rate 16 08/24/25 20:54 Blood Pressure 166/81 H 08/24/25 20:54 Pulse Oximetry 94 08/24/25 20:54 Oxygen Delivery Room Air 08/24/25 20:54 MDM - Weakness MDM Narrative Medical decision making narrative: Patient is a 60-year-old male with generalized weakness on resolving for 4 days. Some associated symptoms. We will do a neuro and cardiac workup at this time. Lab Data Attestation: I reviewed the patient's lab results. 08/24/25 19:34 08/24/25 19:34 Labs: Lab Results 08/24/25 08/24/25 08/24/25 Range/Units 19:34 19:37 19:43 WBC 6.2 (4.8-10.8) K/mm3 RBC 5.24 (4.70-6.10) M/mm3 Hgb 16.0 (14.0-18.0) g/dL Hct 47.2 (40.0-54.0) % MCV 90.1 (78.0-102.0) fL MCH 30.5 (27.0-31.0) pg MCHC 33.9 (32-36) g/dL RDW 13.8 (11.6-14.4) % Plt Count 178 (150-420) K/mm3 MPV 9.6 (8.7-11.0) fl Immature Gran % (Auto) 0.3 H (0.0-0.0) % Neut % (Auto) 48.6 L (50.0-70.0) % Lymph % (Auto) 43.0 H (18.0-42.0) % [place] % (Auto) 5.7 (2.0-11.0) % Eos % (Auto) 1.9 (1.0-6.0) % Baso % (Auto) 0.5 (0.0-1.0) % Lymph # (Auto) 2.66 (1.10-4.50) K/mm3 [place] # (Auto) 0.35 (0.10-0.90) K/mm3 Eos # (Auto) 0.12 (0.02-0.50) K/mm3 Baso # (Auto) 0.03 (0.00-0.10) K/mm3 Abs Immat Gran (auto) 0.02 H (0.00-0.00) K/mm3 Absolute Neuts (auto) 3.00 (1.70-7.20) K/mm3 Absolute Nucleated RBC 0.00 (0.00-0.00) K/mm3 Nucleated RBC % 0.0 (0-0.0) % Sodium 142 (137-145) mmol/L Potassium 3.5 (3.4-5.0) mmol/L Chloride 103 (98-107) mmol/L Carbon Dioxide 29 (22-30) mmol/L Anion Gap 10 (4-12) mmol/L BUN 15 (9-20) mg/dL Creatinine 0.77 (0.7-1.3) mg/dL Estim Creat Clear Calc 149 ml/min Estimated GFR > 60 (59 - ) Glucose 200 H (65-110) mg/dL Calculated Osmolality 300 H (285-295) mOsm/kg Lactic Acid 1.7 (0.7-2.0) mmol/L Calcium 9.5 (8.4-10.2) mg/dL Magnesium 2.0 (1.6-2.3) mg/dL Total Bilirubin 2.0 H (0.2-1.3) mg/dL AST 37 (17-59) U/L ALT 40 (6-50) U/L Alkaline Phosphatase 66 (38-126) U/L Total Creatine Kinase 46 L (55-170) U/L Troponin I < 0.012 (0.000-0.034) ng/mL NT-Pro-B Natriuret Pep 53 (19.9-100) pg/mL Total Protein 7.3 (6.3-8.2) g/dL Albumin 4.6 (3.5-5.1) g/dL Urine Color (Yellow) Urine Appearance (Clear) Urine pH (5.0-8.0) Ur Specific [place] (1.010-1.020) Urine Protein (Negative) Urine Glucose (UA) (Negative) Urine Ketones (Negative) Ur Blood (Man) (Negative) Urine Nitrate (Negative) Urine Bilirubin (Negative) Urine Urobilinogen (0.2-1.0) mg/dL Leukocyte Esterase Rfl (Negative) MICHAEL/UL Influenza A (RT-PCR) Negative (Negative) Influenza B (RT-PCR) Negative (Negative) RSV (RT-PCR) Negative (Negative) SARS-CoV-2 RNA (RT-PCR) Negative (Negative) 08/24/25 Range/Units 19:56 WBC (4.8-10.8) K/mm3 RBC (4.70-6.10) M/mm3 Hgb (14.0-18.0) g/dL Hct (40.0-54.0) % MCV (78.0-102.0) fL MCH (27.0-31.0) pg MCHC (32-36) g/dL RDW (11.6-14.4) % Plt Count (150-420) K/mm3 MPV (8.7-11.0) fl Immature Gran % (Auto) (0.0-0.0) % Neut % (Auto) (50.0-70.0) % Lymph % (Auto) (18.0-42.0) % [place] % (Auto) (2.0-11.0) % Eos % (Auto) (1.0-6.0) % Baso % (Auto) (0.0-1.0) % Lymph # (Auto) (1.10-4.50) K/mm3 [place] # (Auto) (0.10-0.90) K/mm3 Eos # (Auto) (0.02-0.50) K/mm3 Baso # (Auto) (0.00-0.10) K/mm3 Abs Immat Gran (auto) (0.00-0.00) K/mm3 Absolute Neuts (auto) (1.70-7.20) K/mm3 Absolute Nucleated RBC (0.00-0.00) K/mm3 Nucleated RBC % (0-0.0) % Sodium (137-145) mmol/L Potassium (3.4-5.0) mmol/L Chloride (98-107) mmol/L Carbon Dioxide (22-30) mmol/L Anion Gap (4-12) mmol/L BUN (9-20) mg/dL Creatinine (0.7-1.3) mg/dL Estim Creat Clear Calc ml/min Estimated GFR (59 - ) Glucose (65-110) mg/dL Calculated Osmolality (285-295) mOsm/kg Lactic Acid (0.7-2.0) mmol/L Calcium (8.4-10.2) mg/dL Magnesium (1.6-2.3) mg/dL Total Bilirubin (0.2-1.3) mg/dL AST (17-59) U/L ALT (6-50) U/L Alkaline Phosphatase (38-126) U/L Total Creatine Kinase (55-170) U/L Troponin I (0.000-0.034) ng/mL NT-Pro-B Natriuret Pep (19.9-100) pg/mL Total Protein (6.3-8.2) g/dL Albumin (3.5-5.1) g/dL Urine Color Light yellow (Yellow) Urine Appearance Clear (Clear) Urine pH 6.0 (5.0-8.0) Ur Specific [place] 1.010 (1.010-1.020) Urine Protein Negative (Negative) Urine Glucose (UA) 3+ H (Negative) Urine Ketones Trace H (Negative) Ur Blood (Man) Negative (Negative) Urine Nitrate Negative (Negative) Urine Bilirubin Negative (Negative) Urine Urobilinogen 0.2 (0.2-1.0) mg/dL Leukocyte Esterase Rfl Negative (Negative) MICHAEL/UL Influenza A (RT-PCR) (Negative) Influenza B (RT-PCR) (Negative) RSV (RT-PCR) (Negative) SARS-CoV-2 RNA (RT-PCR) (Negative) Imaging Data Attestation: I personally reviewed and interpreted this imaging study as follows: Radiologist's impression: Chest x-rays negative for acute process ECG Data EKG #1: Attestation: I personally reviewed and interpreted this ECG as follows: ECG completion date: 08/24/25 ECG completion time: 19:02 EKG Interpretation: normal rate, sinus rhythm, no ectopy, no ST changes, widened QRS, RBBB, normal QT and right axis Discharge Plan Discharge Clinical Impression: Viral syndrome Patient Disposition: Home Condition: Stable Instructions: Viral Syndrome (ED), Weakness (ED) Additional Instructions: Please follow-up with the primary doctor in the next week. Also have them recheck your bilirubin level for reassurance. Patient Language: [place] Prescriptions: No Action atorvastatin [Lipitor] 40 mg tablet 40 mg PO HS clopidogrel 75 mg tablet 75 mg PO DAILY hydrochlorothiazide 25 mg tablet 25 mg PO DAILY metoprolol tartrate 25 mg tablet 25 mg PO BID metformin 1,000 mg tablet 1,000 mg PO BID Jardiance 25 mg tablet 25 mg PO DAILY aspirin 81 mg tablet 81 mg PO DAILY fluconazole 150 mg tablet 150 mg PO DAILY PRN (Reason: Skin condition) albuterol sulfate [Ventolin HFA] 90 mcg/actuation HFA aerosol inhaler 1 puff inhalation Q4H PRN (Reason: shortness of breath or wheezing) pseudoephedrine HCl [Sudafed] PO Trulicity 3 mg/0.5 mL pen injector 3 mg subcut WEEKLY Follow-up/Referrals: Mayela,MD Goldy [Primary Care Provider, Family Practice] Time of Disposition: 20:59
--- NOTE | 2025-08-24 18:44 | ECG_ITS ---
Test Date: 2025-08-24 18:42:15 Measurements Intervals [place] Rate: 91 P: 3 MD: 116 QRS: -66 QRSD: 150 T: 9 QT: 393 QTc: 485 Interpretive Statements SINUS RHYTHM WITH SHORT MD INTERVAL LEFT AXIS DEVIATION [QRS AXIS < -30] RIGHT BUNDLE BRANCH BLOCK [120+ ms QRS DURATION, UPRIGHT V1, 40+ ms S IN I/aVL/V4/V5/V6] No previous ECG available for comparison Electronically Signed On 08-25-2025 12:11:11 GENERAL MANAGER by Yaakov Dewitt M.D.
--- OUTSIDE RECORDS SUMMARY | 2025-08-24 19:04 | XMS_ITS | Encounter Summary ---
Author Organization [facility] Address [address] [place] [id number] Care Team Providers Care Cosmetic Dentist Name Role Phone Hilda Hernandez MD Unavailable [phone] Goldy Pedro MD Primary Care Provider [phone] [place] NP Unavailable [phone] Nayeli Jackson APRN, HOUSEHOLD APPLIANCE ASSEMBLER-C Unavailable [phone] Claudio Kulkarni MD Unavailable Tania Reynolds-BC Unavailable [phone] Encounter Details Date Type Department Care Team (Late st Contact Info) Description 12/23/2017 Abstract [facility] [address] [place] [address] , Generic Conversion, Social History Tobacco Use Types Packs/Day Years Used Date Smoking Tobacco: Every Day Cigarettes 0.5 23 Smokeless Tobacco: Never Alcohol Use Standard Drinks/Week Comments Yes 0 (1 standard drink = 0.6 oz pur e alcohol) rarely Sex and Gender Information Value Date Recorded Sex Assigned at Not on file 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 Gender Identity Not on file Sexual Orientation Not on file Occupation Industry Job Start Date Job End Date disabled Not on file Not on file Not on file documented as of this encounter Plan of Treatment Upcoming Encounters Date Type Department Care Team (Late Contact Info) Description 03/10/2026 1:00 PM CDT Office Visit [facility] [address] [place] [address] Tania Reynolds, ANP-BC [address] [facility] [address] [place] [address] documented as of this encounter Visit Diagnoses Not on filedocumented in this encounter Additional Health Concerns Infection Onset Date Last Indicated Resolved Time MRSA 08/30/2017 08/30/2017 04/28/2020 6:26 AM CDT COVID-19 Rule Out 09/29/2022 09/29/2022 09/29/2022 10:43 PM DOOR BUILDER COVID-19 Confirmed 09/29/2022 09/29/2022 12:32 AM DOOR BUILDER COVID-19 Rule Out 09/09/2023 09/09/2023 09/09/2023 10:23 PM DOOR BUILDER documented as of this encounter Care Teams Cosmetic Dentist Relationship Specialty Start Date End Date Goldy Pedro MD [address] [place] [address] PCP - General FAMILY PRACTICE 07/24/18 Hilda Hernandez MD CARDIOVASCULAR DISEASE 01/13/17 [place], HOUSEHOLD APPLIANCE ASSEMBLER [address] [place] [address] [place] Workforce Advisor NURSE PRACTITIONER 07/24/18 01/05/25 Nayeli Jackson APRN, HOUSEHOLD APPLIANCE ASSEMBLER-C [address] [place] [address] NURSE PRACTITIONER 02/09/21 01/05/25 Claudio Kulkarni MD [address] [place] [address] Consulting Physician CARDIOVASCULAR DISEASE 01/06/25 Tania Reynolds, ANP-BC [address] [place] [address] [phone] NURSE PRACTITIONER ADULT HEALTH 01/06/25 documented as of this encounter
--- OUTSIDE RECORDS SUMMARY | 2025-08-24 19:04 | XMS_ITS | Encounter Summary ---
Author Organization [facility] Address [address] [place] [address] Care Team Providers Care Bonbon Cream Warmer Name Role Phone Hilda Hernandez MD Unavailable [phone] Goldy Pedro MD Primary Care Provider [phone] E[place] AITCHBONE BREAKER Unavailable [phone] Nayeli Jackson APRN, AITCHBONE BREAKER-C Unavailable [phone] Claudio Kulkarni MD Unavailable Tania Reynolds ANP-BC Unavailable [phone] Encounter Details Date Type Department Care Team (Late st Contact Info) Description 05/03/2017 Abstract [facility] [address] [place] [address] Hilda Hernandez MD [address] [facility] [address] Social History Tobacco Use Types Packs/Day Years Used Date Smoking Tobacco: Every Day Cigarettes 0.5 23 Smokeless Tobacco: Never Alcohol Use Standard Drinks/Week Comments Yes 0 (1 standard drink = 0.6 oz pur e alcohol) rarely Sex and Gender Information Value Date Recorded Sex Assigned at Not on file 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 Gender Identity Not on file Sexual Orientation Not on file Occupation Industry Job Start Date Job End Date disabled Not on file Not on file Not on file documented as of this encounter Plan of Treatment Upcoming Encounters Date Type Department Care Team (Late Contact Info) Description 03/10/2026 1:00 PM CDT [facility] [address] [place] [id number] Tania Reynolds, ANP- [address] [facility] [address] [place] [address] documented as of this encounter Visit Diagnoses Not on filedocumented in this encounter Additional Health Concerns Infection Onset Date Last Indicated Resolved Time MRSA 08/30/2017 08/30/2017 04/28/2020 6:26 AM CDT COVID-19 Rule Out 09/29/2022 09/29/2022 09/29/2022 10:43 PM CHINCHILLA FARMER COVID-19 Confirmed 09/29/2022 09/29/2022 12:32 AM CHINCHILLA FARMER COVID-19 Rule Out 09/09/2023 09/09/2023 09/09/2023 10:23 PM CHINCHILLA FARMER documented as of this encounter Care Teams Bonbon Cream Warmer Relationship Specialty Start Date End Date Goldy Pedro MD [address] [place], [place] [phone] PCP - General FAMILY PRACTICE 07/24/18 Hilda Hernandez MD CARDIOVASCULAR DISEASE 01/13/17 5 [place], AITCHBONE BREAKER [address] [place], [place] [phone] Sartell Buckle Frame Shaper NURSE PRACTITIONER 07/24/18 01/05/25 Nayeli Jackson APRN, AITCHBONE BREAKER-C [address] [place] [phone] NURSE PRACTITIONER 02/09/21 01/05/25 Claudio Kulkarni MD [address] [place] [address] [id number] Consulting Physician CARDIOVASCULAR DISEASE 01/06/25 Tania Reynolds, SUDHA-BC [address] [facility] [address] [place] [address] NURSE PRACTITIONER ADULT HEALTH 01/06/25 documented as of this encounter
--- OUTSIDE RECORDS SUMMARY | 2025-08-24 19:04 | XMS_ITS | Clinical Summary ---
Author Organization [facility] Address [address] [place] [address] Care Team Providers Care Coffee Supervisor Name Role Phone Goldy Pedro MD Primary Care Provider Claudio Kulkarni MD Unavailable Tania Reynolds [facility] Unavailable [phone] Allergies Active Allergy Reactions Criticality Noted Date Comments Gabapentin Other (see comment) 12/14/2016 Confusion, difficulty thinking and concentrating Reaction: Other, Theophylline Palpitations,Other ( see comment) Low 12/14/2016 Reaction: Other, Medications aspirin EC (ECOTRIN) 81 MG tablet Take 1 tablet (81 mg total) by mouth daily. Active hydrochlorothia zide 25 MG tablet Take 1 tablet (25 mg total) by mouth every morning. Active metFORMIN 500 MG tablet Take 2 tablets (1,000 mg total) by mouth 2 (two) times daily with meals. 0 12/09/2016 Active PROAIR HFA 108 (90 BASE) MCG/ACT inhaler INHALE TWO PUFFS PO QID PRN WHEEZING 2 01/08/2017 Active CLOPIDOGREL 75 MG tablet TAKE 1 TABLET BY MOUTH DAILY 30 tablet 06/08/2018 Active ATORVASTATIN 40 MG tablet TAKE 1 TABLET BY MOUTH EVERY NIGHT AT BEDTIME 30 tablet 06/08/2018 Active JARDIANCE 25 MG tablet Take 1 tablet (25 mg total) by mouth daily. 12/06/2019 Active triamcinolone (KENALOG) 0.1 % cream APPLY TO THE AFFECTED AREA DAILY 05/12/2022 Active albuterol sulfate HFA 108 (90 Base) MCG/ACT inhaler Inhale 2 puffs into the lungs every 6 (six) hours as needed for Wheezing. 1 g 09/29/2022 Active TRULICITY 3 MG/0.5ML injection Inject 3 mg into the skin once a week. 02/12/2024 Active metoprolol tartrate (LOPRESSOR) 25 MG tablet Take 1 tablet (25 mg total) by mouth 2 (two) times daily. 180 tablet 3 04/08/2024 Active Active Problems Problem Noted Date Diagnosed Date Fever 09/09/2023 Abscess and cellulitis of gluteal region 020 Necrotizing fasciitis of pelvic region and thigh 04/27/2020 Coronary artery disease 01/13/2017 Essential hypertension 01/13/2017 Hyperlipidemia 01/13/2017 Type 2 diabetes mellitus 01/13/2017 Sleep apnea 01/13/2017 Smoker 01/13/2017 Diabetes type 2, controlled Family History Relation Status Comments Father Alive Maternal Grandfather Maternal Grandmother Mother Alive aortic disection Paternal Grandfather Paternal Grandmother Social History Tobacco Use Types Packs/Day Years Used Date Smoking Tobacco: Every Day Cigarettes 0.3 23 Smokeless Tobacco: Never Tobacco Cessation:Ready to Q uit: No; Counseling Given: Yes Comments: quit last week, patient quit this week. Alcohol Use Standard Drinks/Week Comments Yes 1.7 (1 standard drink = 0.6 oz p ure alcohol) rarely [facility] Answer Date Recorded In the past 12 months has e [employer], gas, oil, or water [employer] threatened to shut off services in your home? No 09/10/2023 Humiliation, Afraid, Rape, and Kick questionnair e Answer Date Recorded Within the last year, have y ou been afraid of your partner or ex-partner? No 09/10/2023 Within the last year, have y ou been humiliated or emotionally abused in other ways by your partner or ex-partner? No Within the last year, have y ou been kicked, hit, slapped, or otherwise physically hurt by your partner or ex-partner? No 09/10/2023 Within the last year, have y ou been raped or forced to have any kind of sexual activity by your partner or ex-partner? No 09/10/2023 Overall Financial Resource Strain (CARDIA) Answe r Date Recorded How hard is it for you to pa y for the very basics like food, housing, medical care, and heating? Not hard at all 09/10/2023 PHQ-2 Answer Date Recorded PHQ-2 Score - If the patient scores above 3, please move on to questions 3-9 0 04/29/2021 Hunger Vital Sign Answer Date Recorded Within the past 12 months, y ou worried that your food would run out before you got the money to buy more. Never true 09/10/20 23 Within the past 12 months, t he food you bought just didn't last and you didn't have money to get more. Never true 09/10/2023 PRAPARE - Transportation Answer Date Re corded In the past 12 months, has l ack of transportation kept you from medical appointments or from getting medications? No 12/2022 In the past 12 months, has l ack of transportation kept you from meetings, work, or from getting things needed for daily living? No 09/10/2023 Housing Stability Vital Sign Answer Harsha e Recorded In the last 12 months, was t here a time when you were not able to pay the mortgage or rent on time? No 09/10/2023 In the last 12 months, how many places have you lived? 1 09/10/2023 In the last 12 months, was t here a time when you did not have a steady place to sleep or slept in a correction (including now)? 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 Gender Identity Not on file Sexual Orientation Not on file Occupation Industry Job Start Date Job End Date disabled Not on file Not on file Not on file Last Filed Vital Signs Vital Sign Reading Time Taken Comments Blood Pressure 138/86 03/07/2025 9:08 AM CDT Pulse 74 03/07/2025 9:08 AM CDT Temperature 37.4 C (99.3 F) 09/10/2023 5:33 AM HARDENER HELPER Respiratory Rate 17 03/07/2025 9:08 AM CDT Oxygen Saturation 98% 03/07/2025 9:08 AM CDT Inhaled Oxygen Concentration - - Weight 171.5 kg (378 lb) 03/07/2025 9:08 AM CDT Height 190.5 cm (6' 3) 03/07/2025 9:08 AM CDT Body Mass Index 47.25 03/07/2025 9:08 AM CDT Plan of Treatment Upcoming Encounters Date Type Department Care Team (Late st Contact Info) Description 03/10/2026 1:00 PM CDT Office Visit [facility] [address] [place] [address] Tania Reynolds, ANP-BC [address] [place] [address] Health Maintenance Due Date Last Done Comments ASCVD Statin 1965 Colorectal Cancer Screening Colonoscopy (10 Years) 1965 Kidney Health Evaluation 1965 Annual Physical 1968 Diabetes: Retinopathy Eye Exam 1983 Hepatitis C 1983 DTaP, Tdap and Td Vaccines (1 - Tdap) 1984 Pneumococcal Vaccine: 50+ Years (1 of 2 - PCV) 1984 Zoster Vaccines (1 of 2) 2015 PHQ-2 (Physician [place]) 10/09/2024 Hemoglobin A1C 01/01/2025 07/04/2024, 03/0 01/2022, 02/12/2021, Additional history exists RSV Immunization or 60+ Years (1 - Risk 60-74 years 1-dose series) 2025 COVID-19 Vaccine ( - season) 2025 08/06/2021, 01/08/2021, 12/11/2020 ASCVD LDL 07/04/2025 07/04/2024, 02/06, 10/21/2020, Additional history exists Lipid Panel 07/04/2025 07/04/2024, 02/06, 10/21/2020, Additional history exists Influenza Adult (#1) 2025 Hepatitis A Vaccines Aged Out No long er eligible based on patient's age to complete this topic Meningococcal B Vaccine Aged Out No l onger eligible based on patient's age to complete this topic Meningococcal Vaccine Aged Out No ruben tania eligible based on patient's age to complete this topic RSV Immunizations Under 20 Months Aged Out No longer eligible based on patient's age to complete this topic Procedures Procedure Name Priority Date/Time Associated Diagnosis Comments LIPID PANEL Routine 07/04/2024 9:59 AM CDT Prostate cancer screening ASHD (arteriosclerotic heart disease) Diabetes mellitus HEMOGLOBIN, GLYCOSYLATED Routine 07/04/2024 9:59 AM CDT Prostate cancer screening ASHD (arteriosclerotic heart disease) Diabetes mellitus from Last 3 Months or Most Recently Relevant to Health Maintenance Results * (ABNORMAL) HEMOGLOBIN, GLYCOSYLATED (07/04/2024 9:59 AM CDT) HGB A1C 6.4(H) <5.7 % 07/05/2024 1:32 PM CDT [facility] ESTIMATED AVG GLUCOSE 137(H) 74 - 114 MG/DL 07/05/2024 1:32 PM CDT [facility] 07/04/2024 9:59 AM CDT John Sanchez ORNAMENTAL BRICK INST[facility] Fin al Result [facility] [address] [place] [address], [phone] * (ABNORMAL) LIPID PANEL (07/04/2024 9:59 AM CDT) CHOLESTEROL 139 MG/DL 07/05/2024 1:35 PM CDT [facility] Comment:DESIRABLE: <200 TRIGLYCERIDES 251 MG/DL 07/05/2024 1:35 PM CDT [facility] Comment:200-499 HIGH HDL 35(L) >39 MG/DL 07/05/2024 1:35 PM CDT [facility] LDL-C 54 MG/DL 07/05/2024 1:35 PM CDT [facility] Comment:<100 OPTIMAL VLDL CALCULATION 50 MG/DL 07/05/20 1:35 PM CDT [facility] Comment:REFERENCE RANGE NOT ESTABLISHED CHOL/HDL RATIO 4.0 07/05/2024 1:35 PM CDT [facility] Comment:REFERENCE RANGE NOT ESTABLISHED LDL/HDL 1.5 07/05/2024 1:35 PM CDT [facility] Comment:REFERENCE RANGE NOT ESTABLISHED NON HDL CHOLESTEROL 104 MG/DL 07/05/2024 1:35 PM CDT [facility] Comment:REFERENCE RANGE NOT ESTABLISHED 07/04/2024 9:59 AM CDT John Sanchez [facility] Fin al Result [facility] [address] [place] [address], [phone] from Last 3 Months or Most Recently Relevant to Health Maintenance Insurance MEDICARE MEDICAID Advance Directives * Full Code (Latest Code Status on File) Date Activated Date Inactivated Comments 09/09/2023 11:18 PM 09/10/2023 2:36 PM * Full Code Date Activated Date Inactivated Comments 04/30/2020 6:42 AM 05/06/2020 6:21 PM Care Teams Coffee Supervisor Relationship Specialty Start Date End Date Goldy Pedro MD [address] [place] [phone] PCP - General FAMILY PRACTICE 07/24/18 Claudio Kulkarni MD [address] [place] [address] Consulting Physician CARDIOVASCULAR DISEASE 01/06/25 Tania Reynolds, ANP- [address] [place] [address] [address] [place] [address] NURSE PRACTITIONER ADULT HEALTH 01/06/25
--- OUTSIDE RECORDS SUMMARY | 2025-08-24 19:04 | XMS_ITS | Encounter Summary ---
Author Organization [facility] Address [address] [place] [address] Care Team Providers Care Plastic And Reconstructive Surgeon Name Role Phone Hilda Hernandez MD Primary Care Provider + Hilda Hernandez MD Unavailable [phone] Goldy Pedro MD Primary Care Provider Ester Lake BAGGING SALVAGER Unavailable [phone] Nayeli Jackson APRN, BAGGING SALVAGER-C Unavailable [phone] Claudio Kulkarni MD Unavailable Tania Reynolds ANP-BC Unavailable [phone] Encounter Details Date Type Department Care Team (Late st Contact Info) Description 12/14/2016 Abstract [facility] [address] [place] [address] Hilda Hernandez MD [address] [facility] [place] [address] Social History Tobacco Use Types Packs/Day Years Used Date Smoking Tobacco: Every Day Cigarettes Alcohol Use Standard Drinks/Week Comments No 0 (1 standard drink = 0.6 oz pur e alcohol) Sex and Gender Information Value Date Recorded Sex Assigned at Not on file Legal Sex 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:52 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 Gender Identity Not on file Sexual Orientation Not on file Occupation Industry Job Start Date Job End Date disabled Not on file Not on file Not on file documented as of this encounter Plan of Treatment Upcoming Encounters Date Type Department Care Team (Late st Contact Info) Description 03/10/2026 1:00 PM CDT [facility] [address] [place] [phone] Tania Reynolds, ANP-BC [address] [facility] [address] [place] [phone] documented as of this encounter Visit Diagnoses Not on filedocumented in this encounter Additional Health Concerns Infection Onset Date Last Indicated Resolved Time MRSA 08/30/2017 08/30/2017 04/28/2020 6:26 AM CDT COVID-19 Rule Out 09/29/2022 09/29/2022 09/29/2022 10:43 PM ASSEMBLY MACHINE TENDER COVID-19 Confirmed 09/29/2022 09/29/2022 12:32 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 COVID-19 Rule Out 09/09/2023 09/09/2023 09/09/2023 10:23 PM ASSEMBLY MACHINE TENDER documented as of this encounter Care Teams Plastic And Reconstructive Surgeon Relationship Specialty Start Date End Date Hilda Hernandez MD PCP - General CARDIOVASCULAR DISEASE 12/13/16 7 Goldy Pedro MD [address] [place], [place] [phone] PCP - General FAMILY PRACTICE 07/24/18 Hilda Hernandez MD CARDIOVASCULAR DISEASE 01/13/17 5 Ester Lake NP [address] [place], [place] [phone] [place] Change Control Analyst NURSE PRACTITIONER 07/24/18 01/05/25 Nayeli Jackson APRN, BAGGING SALVAGER-C [address] [place], [place] [phone] NURSE PRACTITIONER 02/09/21 01/05/25 Claudio Kulkarni MD [address] [place], [place] [phone] Consulting Physician CARDIOVASCULAR DISEASE 01/06/25 Tania Reynolds, SUDHA- [address] [place] [address] [address] NURSE PRACTITIONER ADULT HEALTH 01/06/25 documented as of this encounter
--- OUTSIDE RECORDS SUMMARY | 2025-08-24 19:04 | XMS_ITS | Encounter Summary ---
Author Organization [facility] Address [address] [place] [address] Care Team Providers Care Supervisor Computer Operations Name Role Phone Hilda Hernandez MD Unavailable [phone] Goldy Pedro MD Primary Care Provider [phone] Ester Lake NP Unavailable [phone] Nayeli Jackson APRN, MANAGER CARDIOVASCULAR-C Unavailable [phone] Claudio Kulkarni MD Unavailable Tania Reynolds ANP-BC Unavailable [phone] Encounter Details Date Type Department Care Team (Late st Contact Info) Description 03/16/2019 Abstract [facility] [address] [place] [address] , Generic Conversion, Social History Tobacco Use Types Packs/Day Years Used Date Smoking Tobacco: Every Day Cigarettes 0.5 23 Smokeless Tobacco: Never Alcohol Use Standard Drinks/Week Comments Yes 0 (1 standard drink = 0.6 oz pur e alcohol) rarely Sex and Gender Information Value Date Recorded Sex Assigned at Not on file 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 [address] [place] [address] documented as of this encounter Visit Diagnoses Not on filedocumented in this encounter Additional Health Concerns Infection Onset Date Last Indicated Resolved Time MRSA 08/30/2017 08/30/2017 04/28/2020 6:26 AM CDT COVID-19 Rule Out 09/29/2022 09/29/2022 09/29/2022 10:43 PM FLOUR WORKER COVID-19 Confirmed 09/29/2022 09/29/2022 12:32 AM FLOUR WORKER COVID-19 Rule Out 09/09/2023 09/09/2023 09/09/2023 10:23 PM FLOUR WORKER documented as of this encounter Care Teams Supervisor Computer Operations Relationship Specialty Start Date End Date Goldy Pedro MD [address] [place] [address] PCP - General FAMILY PRACTICE 07/24/18 Hilda Hernandez MD CARDIOVASCULAR DISEASE 01/13/17 [place], MANAGER CARDIOVASCULAR [address] [place] [address] [place] Outreach Assistant NURSE PRACTITIONER 07/24/18 01/05/25 Nayeli Jackson APRN, MANAGER CARDIOVASCULAR-C [address] [place] [address] NURSE PRACTITIONER 02/09/21 01/05/25 Claudio Kulkarni MD [address] [place] [address] Consulting Physician CARDIOVASCULAR DISEASE 01/06/25 Tania Reynolds, ANP-BC [address] [place] [address] [address] NURSE PRACTITIONER ADULT HEALTH 01/06/25 documented as of this encounter
--- OUTSIDE RECORDS SUMMARY | 2025-08-24 19:05 | XMS_ITS | Encounter Summary ---
Author Organization [facility] Address [address] [place] [address] Care Team Providers Care Long Term Care Phlebotomist Name Role Phone Hilda Hernandez MD Unavailable [phone] Goldy Pedro MD Primary Care Provider [phone] Ester Lake NP Unavailable [phone] Nayeli Jackson APRN, BATTERY TEST ENGINEER-C Unavailable [phone] Claudio Kulkarni MD Unavailable Tania Reynolds ANP-BC Unavailable [phone] Encounter Details Date Type Department Care Team (Late st Contact Info) Description 02/28/2022 Abstract [facility] [address] [place] [phone] Abstract, Doc [facility] Social History Tobacco Use Types Packs/Day Years Used Date Smoking Tobacco: Every Day Cigarettes 0.3 23 Smokeless Tobacco: Never Comments:MD to give Alcohol Use Standard Drinks/Week Comments Yes 0 (1 standard drink = 0.6 oz pur e alcohol) rarely PHQ-2 Answer Date Recorded PHQ-2 Score - If the patient scores above 3, please move on to questions 3-9 0 04/29/2021 Sex and Gender Information Value Date Recorded Sex Assigned at Not on file Legal Sex Male 10:52 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 No / Unsure 02/24/2022 8:12 AM CDT documented as of this encounter Functional Status * RETIRED Are you deaf or do you have serious difficulty hearing Answer Date of Assessment Author Status No 04/27/2020 10:35 PM CDT Acti ve * RETIRED Are you blind or do you have serious difficulty seeing, even when wearing glasses? Answer Date of Assessment Author Status No 04/27/2020 10:35 PM CDT Acti ve * Do you have serious difficulty walking or climbing stairs? Answer Date of Assessment Author Status Yes 04/27/2020 10:35 PM CDT Sophie Allred RN Active * Do you have difficulty dressing or bathing? Answer Date of Assessment Author Status No 04/27/2020 10:35 PM CDT Sophie Allred RN Active * Because of a physical, mental, or emotional condition, do you have difficulty doing errands alone such as visiting a doctor's office or shopping? Answer Date of Assessment Author Status No 04/27/2020 10:35 PM CDT Sophie Allred RN Active documented as of this encounter Mental Status * Because of a physical, mental, or emotional condition, do you have serious difficulty concentrating, remembering, or making decisions? Answer Entry Date Author Status No 04/27/2020 10:35 PM CDT Sophie Allred RN Active documented in this encounter Plan of Treatment Upcoming Encounters Date Type Department Care Team (Late st Contact Info) Description 03/10/2026 1:00 PM CDT Office Visit [facility] [address] [place] [address] Tania Reynolds, ANP-BC [address] [facility] [address] [place] [address] documented as of this encounter Procedures Procedure Name Priority Date/Time Associated Diagnosis Comments HEMOGLOBIN, GLYCOSYLATED Routine 12/10/2021 documented in this encounter Results * HEMOGLOBIN, GLYCOSYLATED (12/10/2021) HGB A1C 8.4 % 12/10/2021 us Doc [facility] Abstract LABORATORY Final Result documented in this encounter Visit Diagnoses Not on filedocumented in this encounter Additional Health Concerns Infection Onset Date Last Indicated Resolved Time COVID-19 Rule Out 09/29/2022 09/29/2022 09/29/2022 10:43 PM CONSTRUCTION MATERIALS TESTER COVID-19 Confirmed 09/29/2022 09/29/2022 12:32 AM CONSTRUCTION MATERIALS TESTER COVID-19 Rule Out 09/09/2023 09/09/2023 09/09/2023 10:23 PM CONSTRUCTION MATERIALS TESTER Assessment Noted Time PHQ-9 Depression Total Score: 0 04/29/20 9:32 AM CDT documented as of this encounter Care Teams Long Term Care Phlebotomist Relationship Specialty Start Date End Date Goldy Pedro MD [address] [place], [place] [phone] PCP - General FAMILY PRACTICE 07/24/18 Hilda Hernandez MD CARDIOVASCULAR DISEASE 01/13/17 5 [place], BATTERY TEST ENGINEER [address] [place] [address] [place] Manager Placement NURSE PRACTITIONER 07/24/18 01/05/25 Nayeli Jackson APRN, BATTERY TEST ENGINEER-C [address] [place] [address] NURSE PRACTITIONER 02/09/21 01/05/25 Claudio Kulkarni MD [address] [place] [address] Consulting Physician CARDIOVASCULAR DISEASE 01/06/25 Tania Reynolds, ANP-BC [address] [place] [address] [address] [place] [address] NURSE PRACTITIONER ADULT HEALTH 01/06/25 documented as of this encounter
--- NOTE | 2025-08-24 19:19 | PC.NURSE ---
Lab notified of pt lab orders.
--- NOTE | 2025-08-24 19:45 | PC.NURSE ---
Pt states his back is hurting him and he needs to get off the cot. Pt wanting monitor disconnected so he can get out of bed. Explained reason why pt is on monitor and reasoning for lab tests d/t his complaints that he came into ER for. monitor taken off and pt sitting bedside and walking in room. Explained to pt about wait time for tests. Pt given glass of water to drink.
[2025-08-24 19:50] LABS: Hematocrit 47.2 % (40.0-54.0); Hemoglobin 16.0 g/dL (14.0-18.0); Immature Granulocyte Percent A 0.3 % (0.0-0.0); Lymphocytes Absolute Auto 2.66 K/mm3 (1.10-4.50); Mean Corpuscular HGB Conc 33.9 g/dL (32-36); Mean Corpuscular Hemoglobin 30.5 pg (27.0-31.0); Mean Corpuscular Volume 90.1 fL (78.0-102.0); Nucleated Red Blood Cells Absolute Auto 0.00 K/mm3 (0.00-0.00); Nucleated Red Blood Cells Perc 0.0 % (0-0.0); Platelet Count Result 178 K/mm3 (150-420); Red Blood Count 5.24 M/mm3 (4.70-6.10); White Blood Count 6.2 K/mm3 (4.8-10.8)
[2025-08-24 19:56] LABS: Alanine Aminotransferase 40 U/L (6-50); Albumin Level 4.6 g/dL (3.5-5.1); Alkaline Phosphatase 66 U/L (38-126); Anion Gap 10 mmol/L (4-12); Aspartate Amino Transferase 37 U/L (17-59); Blood Urea Nitrogen 15 mg/dL (9-20); Calcium 9.5 mg/dL (8.4-10.2); Carbon Dioxide 29 mmol/L (22-30); Chloride 103 mmol/L (98-107); Creatine Kinase 46 U/L (55-170); Estimated CRCL calculation 149 ml/min; Estimated Glomerular Filt Rate > 60; Glucose 200 mg/dL (65-110); Magnesium 2.0 mg/dL (1.6-2.3); Osmolality Calculated 300 mOsm/kg (285-295); Potassium 3.5 mmol/L (3.4-5.0); Sodium 142 mmol/L (137-145); Total Protein 7.3 g/dL (6.3-8.2)
[2025-08-24 20:05] LABS: NT Pro B Type Natriuretic Pept 53 pg/mL (19.9-100)
[2025-08-24 20:07] LABS: Troponin I < 0.012 ng/mL (0.000-0.034)
[2025-08-24 20:12] LABS: Add Urine Microscopic? NO; Appearance Urine Clear (Clear); Glucose Urine UA 3+ (Negative); Leukocyte Esterase Ur Negative LEU/UL (Negative); Nitrate Urine Negative (Negative); Specific Grav Ur 1.010 (1.010-1.020)
[2025-08-24 20:33] LABS: Influenza A QL RT-PCR Negative (Negative); Influenza B QL RT-PCR Negative (Negative); RSV RNA, RT-PCR Negative (Negative); SARS-CoV-2 RNA PCR Negative (Negative)
[2025-08-26 13:15] LABS: Bilirubin,Total 1.0 mg/dL (0.2-1.3)
== END 2025-08-24 21:02 | disposition home or self-care (01) ==
PROVIDERS: Emergency Provider Emergency Medicine; PCP Family Medicine
DX: B34.9 Viral infection, unspecified (principal); Z20.822 Contact with and (suspected) exposure to COVID-19
CPT/HCPCS: 36415; 70450; 71046; 80053; 81003; 82550; 83605; 83735; 83880; 84484; 85025; 87637; 93005; 99284